=== PATIENT | male | born 1995 | race Caucasian/White ===

== ENCOUNTER 2018-05-12 13:20 | Emergency (ER) | payer OTHER ==
[2018-05-12 13:25] VITALS: RESP 18
[2018-05-12] MEDS ORDERED: SODIUM CHLORIDE 0.9% 1,000 ML IV STA (14:27)
[2018-05-12] MEDS ORDERED: SODIUM CHLORIDE 0.9% 500 ML IV STA (14:27)
[2018-05-12 14:57] LABS: ALT 25 U/L (21-72); AST 24 U/L (17-59); Albumin 4.5 g/dL (3.5-5.0); Alkaline Phosphatase 109 U/L (38-126); Amylase 34 U/L (30-110); Anion Gap 11 mmol/L; Basophils # (A) 0.1 k/uL (0-0.2); Basophils % (A) 1 %; Blood Urea Nitrogen 10 mg/dL (9-20); Calcium 9.6 mg/dL (8.4-10.2); Carbon Dioxide 23 mmol/L (22-30); Chloride 106 mmol/L (98-107); Eosinophils # (A) 0.1 k/uL (0-0.7); Eosinophils % (A) 1 %; Glucose 92 mg/dL (74-99); HCT 47.1 % (39.0-53.0); HGB 15.9 gm/dL (13.0-17.5); Lipase 37 U/L (23-300); Lymphocytes # (A) 0.9 k/uL (1.0-4.8); Lymphocytes % (A) 8 %; MCH 33.4 pg (25.0-35.0); MCHC 33.7 g/dL (31.0-37.0); Mean Platelet Volume 6.3; Monocytes # (A) 1.2 k/uL (0-1.0); Monocytes % (A) 11 %; Neutrophils # (A) 8.5 k/uL (1.3-7.7); Neutrophils % (A) 77 %; Platelet Count 261 k/uL (150-450); Potassium 4.4 mmol/L (3.5-5.1); RBC 4.75 m/uL (4.30-5.90); RDW 13.5 % (11.5-15.5); Sodium 140 mmol/L (137-145); Total Bilirubin 0.5 mg/dL (0.2-1.3); Total Protein 7.2 g/dL (6.3-8.2)
--- NOTE | 2018-05-12 15:10 | XR ---
EXAMINATION TYPE: XR chest 2V DATE OF EXAM: 05/12/2018 COMPARISON: 10/22/2017 HISTORY: Chest pain TECHNIQUE: Frontal and lateral views of the chest are obtained. FINDINGS: There is no focal air space opacity, pleural effusion, or pneumothorax seen. The cardiac silhouette size is within normal limits. The osseous structures are intact. IMPRESSION: No acute cardiopulmonary process.
--- NOTE | 2018-05-12 15:13 | XR ---
EXAMINATION TYPE: XR KUB DATE OF EXAM: 05/12/2018 CLINICAL DATA: 22-year-old male with pain, PHH COMPARISON: None FINDINGS: Lung bases are clear. No evidence for free intraperitoneal air. No dilated small bowel or air-fluid levels. Some scattered gassy small bowel loops are demonstrated. Colonic air extending distally into the rectum. No significant stool burden. No suspicious calcifications identified. IMPRESSION: No evidence of bowel obstruction or free intraperitoneal air.
--- NOTE | 2018-05-12 16:00 | ED ---
Nausea/Vomiting/Diarrhea HPI - General Chief complaint: Nausea/Vomiting/Diarrhea Stated complaint: Diarrhea/shaking Time Seen by Provider: 05/12/18 14:07 Source: patient, RN notes reviewed Mode of arrival: ambulatory Limitations: no limitations - History of Present Illness Initial comments: 22-year-old male presents emergency Department with chief complaint of diarrhea 10 days. Patient states that he has 3 episodes today states occasionally gets abdominal cramping. Patient denies any recent antibiotic use, recent traveling or sick contacts. Denies any nausea vomiting. Denies any prior abdominal surgeries. Patient had no melena hematochezia. Patient denies any dysuria no hematuria. Patient also has complained over the last 3-4 days she's had some URI symptoms including runny nose cough and slight sore throat. Patient states he has not taken any medications for either complaint - Related Data Previous Rx's Medication Instructions Recorded Azithromycin [Zithromax Z-pack] 0 mg PO DIRECTED #1 pack 05/12/18 Allergies Allergy/AdvReac Type Severity Reaction Status Date / Time ciprofloxacin [From Cipro] Allergy Unknown Verified 05/12/18 14:19 clarithromycin [From Biaxin] Allergy Rash/Hives Verified 05/12/18 14:19 Mushroom AdvReac Nausea & Verified 05/12/18 14:19 Vomiting Review of Systems ROS Statement: Those systems with pertinent positive or pertinent negative responses have been documented in the HPI. ROS Other: All systems not noted in ROS Statement are negative. Past Medical History Past Medical History: No Reported History History of Any Multi-Drug Resistant Organisms: None Reported Past Surgical History: Orthopedic Surgery Additional Past Surgical History / Comment(s): Right arm Past Psychological History: Anxiety Smoking Status: Current every day smoker Past Alcohol Use History: Daily Past Drug Use History: Marijuana General Exam Limitations: no limitations General appearance: alert, in no apparent distress Head exam: Present: atraumatic, normocephalic, normal inspection Eye exam: Present: normal appearance, PERRL, EOMI. Absent: scleral icterus, conjunctival injection, periorbital swelling ENT exam: Present: normal exam, normal oropharynx, mucous membranes moist, TM's normal bilaterally, normal external ear exam Neck exam: Present: normal inspection, full ROM. Absent: tenderness, meningismus, lymphadenopathy Respiratory exam: Present: normal lung sounds bilaterally. Absent: respiratory distress, wheezes, rales, rhonchi, stridor Cardiovascular Exam: Present: regular rate, normal rhythm, normal heart sounds. Absent: systolic murmur, diastolic murmur, rubs, gallop, clicks GI/Abdominal exam: Present: soft, normal bowel sounds. Absent: distended, tenderness, guarding, rebound, rigid Neurological exam: Present: alert, oriented X3, CN II-XII intact Skin exam: Present: warm, dry, intact, normal color. Absent: rash Course Vital Signs 05/12/18 05/12/18 13:22 15:53 Temperature 99.1 F Pulse Rate 97 65 Respiratory 18 18 Rate Blood Pressure 149/79 127/65 O2 Sat by Pulse 99 99 Oximetry Medical Decision Making - Medical Decision Making 22-year-old male presents emergency Department with chief complaint of diarrhea and cough URI symptoms. Patient labwork x-rays which unremarkable. Patient will be started on azithromycin for acute bronchitis and underlying ongoing diarrhea. Stool studies will be obtained out patient has not provided sample here - Lab Data Result diagrams: 05/12/18 14:30 05/12/18 14:30 Lab Results 05/12/18 05/12/18 05/12/18 Range/Units 14:30 14:30 15:56 WBC 11.0 H (3.8-10.6) k/uL RBC 4.75 (4.30-5.90) m/uL Hgb 15.9 (13.0-17.5) gm/dL Hct 47.1 (39.0-53.0) % MCV 99.0 (80.0-100.0) fL MCH 33.4 (25.0-35.0) pg MCHC 33.7 (31.0-37.0) g/dL RDW 13.5 (11.5-15.5) % Plt Count 261 (150-450) k/uL Neutrophils % 77 % Lymphocytes % 8 % Monocytes % 11 % Eosinophils % 1 % Basophils % 1 % Neutrophils # 8.5 H (1.3-7.7) k/uL Lymphocytes # 0.9 L (1.0-4.8) k/uL Monocytes # 1.2 H (0-1.0) k/uL Eosinophils # 0.1 (0-0.7) k/uL Basophils # 0.1 (0-0.2) k/uL Sodium 140 (137-145) mmol/L Potassium 4.4 (3.5-5.1) mmol/L Chloride 106 (98-107) mmol/L Carbon Dioxide 23 (22-30) mmol/L Anion Gap 11 mmol/L BUN 10 (9-20) mg/dL Creatinine 0.85 (0.66-1.25) mg/dL Est GFR (CKD-EPI)AfAm >90 (>60 ml/min/1.73 sqM) Est GFR (CKD-EPI)NonAf >90 (>60 ml/min/1.73 sqM) Glucose 92 (74-99) mg/dL Calcium 9.6 (8.4-10.2) mg/dL Total Bilirubin 0.5 (0.2-1.3) mg/dL AST 24 (17-59) U/L ALT 25 (21-72) U/L Alkaline Phosphatase 109 (38-126) U/L Total Protein 7.2 (6.3-8.2) g/dL Albumin 4.5 (3.5-5.0) g/dL Amylase 34 (30-110) U/L Lipase 37 (23-300) U/L Urine Color Light Yellow Urine Appearance Clear (Clear) Urine pH 7.0 (5.0-8.0) Ur Specific [place] 1.007 (1.001-1.035) Urine Protein Negative (Negative) Urine Glucose (UA) Negative (Negative) Urine Ketones Negative (Negative) Urine Blood Negative (Negative) Urine Nitrite Negative (Negative) Urine Bilirubin Negative (Negative) Urine Urobilinogen <2.0 (<2.0) mg/dL Ur Leukocyte Esterase Negative (Negative) Disposition Clinical Impression: Diarrhea, Acute bronchitis Disposition: HOME SELF-CARE Condition: Stable Instructions: Acute Diarrhea (ED) Additional Instructions: Please return to the Emergency Department if symptoms worsen or any other concerns. Prescriptions: Azithromycin [Zithromax Z-pack] 0 mg PO DIRECTED #1 pack Is patient prescribed a controlled substance at d/c from ED?: No Referrals: None,Stated [Primary Care Provider] - 1-2 days Time of Disposition: 16:42
[2018-05-12 16:07] LABS: Appearance,Urine Clear (Clear); Bilirubin,Urine Negative (Negative); Blood,Urine Negative (Negative); Color,Urine Light Yellow; Glucose,Urine (UA) Negative (Negative); Ketones,Urine Negative (Negative); Leukocyte Esterase,Urine Negative (Negative); Nitrite,Urine Negative (Negative); Protein,Urine Negative (Negative); Specific Gravity,Urine 1.007 (1.001-1.035); Urobilinogen,Urine <2.0 mg/dL (<2.0)
[2018-05-12 16:58] VITALS: BP 117/66; PULSE 70; TEMP 99.2
== END 2018-05-12 16:58 | disposition home or self-care (01) ==
LOC: EC 13:20
DX: J20.9 Acute bronchitis, unspecified (principal); R19.7 Diarrhea, unspecified; R10.9 Unspecified abdominal pain; F17.200 Nicotine dependence, unspecified, uncomplicated; Z88.1 Allergy status to other antibiotic agents; Z91.018 Allergy to other foods
CPT/HCPCS: 36415; 71046; 74018; 80053; 81003; 82150; 83690; 85025; 96360; 96361; 99284

== ENCOUNTER 2018-06-01 17:58 | Emergency (ER) | payer OTHER ==
[2018-06-01 18:08] VITALS: BP 122/71; PULSE 89; RESP 18; TEMP 98.3
[2018-06-01] MEDS ORDERED: PROPARACAINE 0.5% OPHTH DROPS 15 ML BTL LEFT EYE STA (18:12)
[2018-06-01] MEDS ORDERED: PROPARACAINE 0.5% OPHTH DROPS 15 ML BTL ONE (18:13)
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
== END 2018-06-01 18:51 | disposition home or self-care (01) ==
LOC: EC 17:58
DX: S05.02XA Injury of conjunctiva and corneal abrasion without foreign body, left eye, initial encounter (principal); F17.200 Nicotine dependence, unspecified, uncomplicated; Z88.1 Allergy status to other antibiotic agents; Z91.018 Allergy to other foods; W22.8XXA Striking against or struck by other objects, initial encounter
CPT/HCPCS: 99283

== ENCOUNTER 2018-09-25 16:22 | Emergency (ER) | payer OTHER ==
--- NOTE | 2018-09-25 17:30 | ED ---
General Adult HPI <Jeremias Iyer - Last Filed: 09/25/18 20:00> - General Source: patient, police, RN notes reviewed Mode of arrival: ambulatory Limitations: no limitations <Isai Hagan - Last Filed: 09/25/18 20:14> - General Chief complaint: Extremity Injury, Upper Stated complaint: shoulder injury-[facility] Time Seen by Provider: 09/25/18 17:14 - History of Present Illness Initial comments: Patient 22-year-old male presenting to the emergency room today with a chief complaint of injury to the right shoulder. He states he was throwing a piece of carpet over into the dumpster felt the shoulder pop. He states he has dislocated this shoulder before. He states is usually able to relocate it on his own. Patient states that increased pain and feels that it is out of place. He denies any other complaints or symptoms. Patient denies any recent fever, chills, shortness of breath, chest pain, back pain, abdominal pain, nausea or vomiting, headaches or visual changes, or any other complaints. (Isai Hagan) - Related Data Previous Rx's Medication Instructions Recorded Azithromycin [Zithromax Z-pack] 0 mg PO DIRECTED #1 pack 05/12/18 Erythromycin Ophth Oint [Romycin 1 applic LEFT EYE QID 5 Days #1 06/01/18 Ophth Oint] tube Allergies Allergy/AdvReac Type Severity Reaction Status Date / Time ciprofloxacin [From Cipro] Allergy Unknown Verified 06/01/18 18:08 Mushroom AdvReac Nausea & Verified 06/01/18 18:08 Vomiting Review of Systems ROS Other: All systems not noted in ROS Statement are negative. <Jeremias Iyer - Last Filed: 09/25/18 20:00> ROS Other: All systems not noted in ROS Statement are negative. <Isai Hagan - Last Filed: 09/25/18 20:14> ROS Statement: Those systems with pertinent positive or pertinent negative responses have been documented in the HPI. Past Medical History Past Medical History: No Reported History History of Any Multi-Drug Resistant Organisms: None Reported Past Surgical History: Orthopedic Surgery Additional Past Surgical History / Comment(s): Right arm Past Psychological History: Anxiety Smoking Status: Current every day smoker Past Alcohol Use History: Daily Past Drug Use History: Marijuana <Isai Hagan - Last Filed: 09/25/18 20:14> General Exam General appearance: alert, in no apparent distress Head exam: Present: atraumatic, normocephalic, normal inspection Eye exam: Present: normal appearance, PERRL, EOMI. Absent: scleral icterus, conjunctival injection, periorbital swelling ENT exam: Present: normal exam, mucous membranes moist Neck exam: Present: normal inspection. Absent: tenderness, meningismus, lymphadenopathy Respiratory exam: Present: normal lung sounds bilaterally. Absent: respiratory distress, wheezes, rales, rhonchi, stridor Cardiovascular Exam: Present: regular rate, normal rhythm, normal heart sounds. Absent: systolic murmur, diastolic murmur, rubs, gallop, clicks GI/Abdominal exam: Present: soft, normal bowel sounds. Absent: distended, tenderness, guarding, rebound, rigid Extremities exam: Present: normal inspection, full ROM, normal capillary refill. Absent: tenderness, pedal edema, joint swelling, calf tenderness Back exam: Present: normal inspection Neurological exam: Present: alert, oriented X3, CN II-XII intact Psychiatric exam: Present: normal affect, normal mood Skin exam: Present: warm, dry, intact, normal color. Absent: rash <Jeremias Iyer - Last Filed: 09/25/18 20:00> Limitations: no limitations <Isai Hagan - Last Filed: 09/25/18 20:14> - General Exam Comments Initial Comments: General: The patient is awake and alert, in no distress, and does not appear acutely ill. Eye: Pupils are equal, round and reactive to light, extra-ocular movements are intact. No nystagmus. There is normal conjunctiva bilaterally. No signs of icterus. Ears, nose, mouth and throat: There are moist mucous membranes and no oral lesions. Musculoskeletal: Patient does have abnormal appearance the right shoulder. He is tender over the anterior posterior aspect. Radial pulses 2+. Sensations intact. No bony tenderness down to the elbow or wrist. Neurological: A&O x 3. CN II-XII intact, There are no obvious motor or sensory deficits. Coordination appears grossly intact. Speech is normal. Skin: Skin is warm and dry and no rashes or lesions are noted. Psychiatric: Cooperative, appropriate mood & affect, normal judgment. (Isai Hagan) Vital Signs 09/25/18 09/25/18 09/25/18 17:18 18:47 19:18 Temperature 97.5 F L Pulse Rate 91 76 81 Respiratory 18 20 18 Rate Blood Pressure 137/65 141/75 136/87 O2 Sat by Pulse 98 97 98 Oximetry 09/25/18 09/25/18 19:37 19:41 Temperature Pulse Rate 85 81 Respiratory 18 18 Rate Blood Pressure 162/68 144/74 O2 Sat by Pulse 98 98 Oximetry Procedures - Orthopedic Joint Reduction Joint #1 Consent Obtained: verbal consent Time Out Performed: Yes Side: right Joint Reduction Location: shoulder Analgesia: procedural sedation Shoulder Technique Used (if applicable): traction/counter-traction Technique Used: traction/counter-traction Post-Reduction Neuro Exam: intact Post-Reduction Vascular Exam: intact Post Reduction X-Ray Obtained: Yes Post Reduction X-Ray Results: reduced Splint Applied: Yes Patient Tolerated Procedure: well - Procedural Sedation Indications: fracture/dislocation reduction ASA Class: I Mallampati Airway Score: 1 Preparation: children librarian applied, supplemental O2 applied Ketamine: IV IV Propofol Dose (mgs): 250 Complications: none Interventions: oxygen applied Patient Tolerated Procedure: well <Jeremias Iyer - Last Filed: 09/25/18 20:00> Medical Decision Making <Jeremias Iyer - Last Filed: 09/25/18 20:00> <Isai Hagan - Last Filed: 09/25/18 20:14> - Medical Decision Making Conscious sedation was performed with attending physician Dr. Iyer. Patient' s right shoulder was reduced. Patient's x-ray shows good reduction. Patient placed in an arm sling. He's been up walking around doing well at this time. Patient is advised follow-up with orthopedics. (Isai Hagan) Disposition Is patient prescribed a controlled substance at d/c from ED?: No <Jeremias Iyer - Last Filed: 09/25/18 20:00> Is patient prescribed a controlled substance at d/c from ED?: No Time of Disposition: 20:13 <Isai Hagan - Last Filed: 09/25/18 20:14> Clinical Impression: Strain of shoulder, Shoulder dislocation Disposition: HOME SELF-CARE Instructions: Shoulder Dislocation (ED) Additional Instructions: Please follow-up with orthopedics over the next 2-5 days. Please use shoulder sling when up and moving around. Please return to emergency room for any other concerns. Referrals: None,Stated [Primary Care Provider] - 1-2 days Ray Chan MD [Medical Doctor] - 1-2 days
--- NOTE | 2018-09-25 17:42 | XR ---
EXAMINATION TYPE: XR shoulder complete RT DATE OF EXAM: 09/25/2018 COMPARISON: NONE HISTORY: Shoulder injury TECHNIQUE: 3 views FINDINGS: There is anterior inferior dislocation of the humeral head. There is no fracture seen. IMPRESSION: Anterior shoulder dislocation.
[2018-09-25] MEDS ORDERED: PROPOFOL 10 MG/ML 20 ML VIAL IV STA (17:49)
[2018-09-25 19:19] VITALS: RESP 18
[2018-09-25] MEDS ORDERED: PROPOFOL 10 MG/ML 20 ML VIAL IV ONE (19:55)
--- NOTE | 2018-09-25 20:01 | XR ---
EXAMINATION TYPE: XR shoulder limited RT DATE OF EXAM: 09/25/2018 COMPARISON: Today HISTORY: Post reduction TECHNIQUE: Single view FINDINGS: There is anatomic reduction of the shoulder joint. No fracture seen. IMPRESSION: Anatomic reduction.
[2018-09-25 21:30] VITALS: BP 155/71; PULSE 65; TEMP 98.9
--- NOTE | 2018-09-26 07:07 | CDI ---
Documentation Clarification OP Dear Jeremias Iyer, DO Please do addendum to ED report for shoulder dislocation reduction procedure end time. Thank you, Margo Lea Ladder Operator If you have any questions, please contact Public Affairs Specialist at [phone] [facility]
== END 2018-09-25 20:51 | disposition home or self-care (01) ==
LOC: EC 16:22
DX: S43.004A Unspecified dislocation of right shoulder joint, initial encounter (principal); F17.200 Nicotine dependence, unspecified, uncomplicated; Z98.890 Other specified postprocedural states; Z88.1 Allergy status to other antibiotic agents; Z91.018 Allergy to other foods; X50.9XXA Other and unspecified overexertion or strenuous movements or postures, initial encounter; Y92.69 Other specified industrial and construction area as the place of occurrence of the external cause; Y93.89 Activity, other specified; Y99.0 Civilian activity done for income or pay
CPT/HCPCS: 73020; 73030; 99283; 23650; 99152; 99153; J2704

== ENCOUNTER 2018-09-30 15:15 | Emergency (ER) | payer OTHER ==
[2018-09-30 15:24] VITALS: BP 140/75; PULSE 82; RESP 18; TEMP 98.7
--- NOTE | 2018-09-30 16:03 | XR ---
Right shoulder HISTORY: Dislocation and reduction, trauma and pain 3 views of the right shoulder Bone mineralization, joint spaces and alignment are maintained IMPRESSION: No acute fracture or dislocation. Consider shoulder MRI.
--- NOTE | 2018-09-30 16:20 | ED ---
Upper Extremity HPI - General Chief Complaint: Extremity Injury, Upper Stated Complaint: [facility] revisit rt shoulder pain Time Seen by Provider: 09/30/18 15:26 Source: patient, RN notes reviewed Mode of arrival: ambulatory Limitations: no limitations - History of Present Illness Initial Comments: 22-year-old male presents emergency Department with chief complaint right shoulder pain. Patient states that he is here yesterday for shoulder dislocation. Patient states she rolled over on her put his arm above his head last night and felt it pop out again. Patient states that he but it back in by himself and called his follow-up doctor and they told him come emergency from for evaluation. He states that it does feel improved at the time and isn't. Patient offers no other complaints. - Related Data Home Medications Medication Instructions Recorded Confirmed Cyclobenzaprine [Flexeril] 10 mg PO HS PRN 09/30/18 09/30/18 Naproxen 500 mg PO BID PRN 09/30/18 09/30/18 Allergies Allergy/AdvReac Type Severity Reaction Status Date / Time ciprofloxacin [From Cipro] Allergy Unknown Verified 09/30/18 15:35 Mushroom AdvReac Nausea & Verified 09/30/18 15:35 Vomiting Review of Systems ROS Statement: Those systems with pertinent positive or pertinent negative responses have been documented in the HPI. ROS Other: All systems not noted in ROS Statement are negative. Past Medical History Past Medical History: No Reported History History of Any Multi-Drug Resistant Organisms: None Reported Past Surgical History: Orthopedic Surgery Additional Past Surgical History / Comment(s): Right arm Past Psychological History: Anxiety Smoking Status: Current every day smoker Past Alcohol Use History: Daily Past Drug Use History: Marijuana General Exam Limitations: no limitations General appearance: alert, in no apparent distress Head exam: Present: atraumatic, normocephalic, normal inspection Respiratory exam: Present: normal lung sounds bilaterally. Absent: respiratory distress, wheezes, rales, rhonchi, stridor Cardiovascular Exam: Present: regular rate, normal rhythm, normal heart sounds. Absent: systolic murmur, diastolic murmur, rubs, gallop, clicks Extremities exam: Present: other (Right shoulder limited range of motion neurovascular intact no obvious deformity no sulcus, mild tenderness with palpation) Skin exam: Present: warm, dry, intact, normal color. Absent: rash Course Vital Signs 09/30/18 15:18 Temperature 98.7 F Pulse Rate 82 Respiratory 18 Rate Blood Pressure 140/75 O2 Sat by Pulse 100 Oximetry Medical Decision Making - Medical Decision Making 22-year-old male present emergency from for right shoulder pain. Patient had recurrent shoulder dislocation. There is no acute abnormality on x-ray. Patient will follow-up return parameters were discussed. Disposition Clinical Impression: Strain of shoulder, Recurrent shoulder dislocation Disposition: HOME SELF-CARE Condition: Stable Instructions: Shoulder Dislocation (ED) Additional Instructions: Please return to the Emergency Department if symptoms worsen or any other concerns. Is patient prescribed a controlled substance at d/c from ED?: No Referrals: None,Stated [Primary Care Provider] - 1-2 days Time of Disposition: 16:22
== END 2018-09-30 16:38 | disposition home or self-care (01) ==
LOC: EC 15:15
DX: M24.411 Recurrent dislocation, right shoulder (principal); F17.200 Nicotine dependence, unspecified, uncomplicated; Z88.1 Allergy status to other antibiotic agents; Z91.018 Allergy to other foods
CPT/HCPCS: 99283

== ENCOUNTER → 2020-06-28 | Outpatient (CLI) | payer BC, OTHER | END | disposition home or self-care (01) | LOC: LABWHC1 12:37 | PROVIDERS: ATTEND Emergency Medicine | DX: Z20.828 Contact with and (suspected) exposure to other viral communicable diseases (principal) | CPT/HCPCS: U0003; C9803 ==

== ENCOUNTER 2021-10-23 14:23 | Emergency (ER) | payer OTHER ==
[2021-10-23 15:03] VITALS: TEMP 98.9
[2021-10-23] MEDS ORDERED: SODIUM CHLORIDE 0.9% 1,000 ML IV ONE (16:19)
--- NOTE | 2021-10-23 16:23 | ED ---
General Adult HPI - General Chief complaint: Neuro Symptoms/Deficit Stated complaint: Possible Stroke Time Seen by Provider: 10/23/21 15:00 Source: patient, RN notes reviewed, old records reviewed Mode of arrival: ambulatory Limitations: no limitations - History of Present Illness Initial comments: This is a 25-year-old male who presents emergency department with past medical history significant for drinking and possibly a TIA years ago. Patient states yesterday at 7:30 he started feeling fuzzy in his head and he went to [facility] they did a CAT scan and some lab work however the patient left AMA prior to them telling him his results so he does not know what happened. Patient states he continues to feel fuzzy today and he does continue to drink today and states he has no weakness or numbness he denies blurred vision he denies lightheadedness or dizziness. Patient denies chest pain palpitations difficulty breathing shortness of breath. Patient denies any recent fever chills or cough. Patient denies abdominal pain patient denies nausea vomiting or diarrhea. Patient's only complaint is that he feels fuzzy in his head and he can't remember leaving [facility] yesterday. - Related Data Home Medications Medication Instructions Recorded Confirmed Escitalopram [Lexapro] 20 mg PO HS 10/23/21 10/23/21 buPROPion HCL [Wellbutrin SR] 150 mg PO HS 10/23/21 10/23/21 Allergies Allergy/AdvReac Type Severity Reaction Status Date / Time ciprofloxacin [From Cipro] Allergy Unknown Verified 10/23/21 17:29 clarithromycin [From Biaxin] Allergy Rash/Hives Verified 10/23/21 17:29 Review of Systems ROS Statement: Those systems with pertinent positive or pertinent negative responses have been documented in the HPI. ROS Other: All systems not noted in ROS Statement are negative. Past Medical History Past Medical History: No Reported History History of Any Multi-Drug Resistant Organisms: None Reported Past Surgical History: Orthopedic Surgery Additional Past Surgical History / Comment(s): Right arm Past Psychological History: Anxiety, Depression Smoking Status: Current every day smoker Past Alcohol Use History: Abuse, Daily, Heavy Past Drug Use History: Marijuana General Exam - General Exam Comments Initial Comments: GENERAL: Patient is well-developed and well-nourished. Patient is nontoxic and well- hydrated and is in no acute distress. ENT: Neck is soft and supple. No significant lymphadenopathy is noted. Oropharynx is clear. Moist mucous membranes. Neck has full range of motion without eliciting any pain. EYES: The sclera were anicteric and conjunctiva were pink and moist. Extraocular movements were intact and pupils were equal round and reactive to light. Eyelids were unremarkable. PULMONARY: Unlabored respirations. Good breath sounds bilaterally. No audible rales rhonchi or wheezing was noted. CARDIOVASCULAR: There is a regular rate and rhythm without any murmurs gallops or rubs. ABDOMEN: Soft and nontender with normal bowel sounds. SKIN: Skin is clear with no lesions or rashes and otherwise unremarkable. NEUROLOGIC: Patient is alert and oriented x3. Cranial nerves II through XII are grossly intact. Motor and sensory are also intact. Normal speech, volume and content. Symmetrical smile. MUSCULOSKELETAL: Normal extremities with adequate strength and full range of motion. No lower extremity swelling or edema. No calf tenderness. LYMPHATICS: No significant lymphadenopathy is noted PSYCHIATRIC: Normal psychiatric evaluation. Limitations: no limitations Course Vital Signs 10/23/21 10/23/21 14:58 17:19 Temperature 98.9 F Pulse Rate 72 77 Respiratory 19 18 Rate Blood Pressure 130/89 136/83 O2 Sat by Pulse 98 97 Oximetry Medical Decision Making - Medical Decision Making EKG shows normal sinus rhythm at 72 bpm HI interval is 184 QRS is 90 QT interval 392 QTC is 429. Patient's EKG shows no ST segment elevation or depression. - Lab Data Result diagrams: 10/23/21 16:43 10/23/21 16:43 Lab Results 10/23/21 10/23/21 10/23/21 Range/Units 16:43 16:43 16:43 WBC 6.1 (3.8-10.6) k/uL RBC 4.31 (4.30-5.90) m/uL Hgb 15.4 (13.0-17.5) gm/dL Hct 45.1 (39.0-53.0) % MCV 104.6 H (80.0-100.0) fL MCH 35.7 H (25.0-35.0) pg MCHC 34.1 (31.0-37.0) g/dL RDW 12.6 (11.5-15.5) % Plt Count 284 (150-450) k/uL MPV 7.1 Neutrophils % 62 % Lymphocytes % 22 % Monocytes % 7 % Eosinophils % 5 % Basophils % 1 % Neutrophils # 3.8 (1.3-7.7) k/uL Lymphocytes # 1.4 (1.0-4.8) k/uL Monocytes # 0.4 (0-1.0) k/uL Eosinophils # 0.3 (0-0.7) k/uL Basophils # 0.0 (0-0.2) k/uL Macrocytosis Slight Sodium 142 (137-145) mmol/L Potassium 3.8 (3.5-5.1) mmol/L Chloride 106 (98-107) mmol/L Carbon Dioxide 21 L (22-30) mmol/L Anion Gap 15 mmol/L BUN 8 L (9-20) mg/dL Creatinine 0.78 (0.66-1.25) mg/dL Est GFR (CKD-EPI)AfAm >90 (>60 ml/min/1.73 sqM) Est GFR (CKD-EPI)NonAf >90 (>60 ml/min/1.73 sqM) Glucose 128 H (74-99) mg/dL Calcium 9.5 (8.4-10.2) mg/dL Magnesium 2.1 (1.6-2.3) mg/dL Total Bilirubin 0.3 (0.2-1.3) mg/dL AST 127 H (17-59) U/L ALT 99 H (4-49) U/L Alkaline Phosphatase 84 (38-126) U/L Ammonia (<30) umol/L Total Protein 7.8 (6.3-8.2) g/dL Albumin 4.8 (3.5-5.0) g/dL Urine Opiates Screen Not Detected (NotDetected) Ur Oxycodone Screen Not Detected (NotDetected) Urine Methadone Screen Not Detected (NotDetected) Ur Propoxyphene Screen Not Detected (NotDetected) Ur Barbiturates Screen Not Detected (NotDetected) U Tricyclic Antidepress Not Detected (NotDetected) Ur Phencyclidine Scrn Not Detected (NotDetected) Ur Amphetamines Screen Not Detected (NotDetected) U Methamphetamines Scrn Not Detected (NotDetected) U Benzodiazepines Scrn Not Detected (NotDetected) Urine Cocaine Screen Not Detected (NotDetected) U Marijuana (THC) Screen Not Detected (NotDetected) Serum Alcohol 175 mg/dL 10/23/21 Range/Units 16:43 WBC (3.8-10.6) k/uL RBC (4.30-5.90) m/uL Hgb (13.0-17.5) gm/dL Hct (39.0-53.0) % MCV (80.0-100.0) fL MCH (25.0-35.0) pg MCHC (31.0-37.0) g/dL RDW (11.5-15.5) % Plt Count (150-450) k/uL MPV Neutrophils % % Lymphocytes % % Monocytes % % Eosinophils % % Basophils % % Neutrophils # (1.3-7.7) k/uL Lymphocytes # (1.0-4.8) k/uL Monocytes # (0-1.0) k/uL Eosinophils # (0-0.7) k/uL Basophils # (0-0.2) k/uL Macrocytosis Sodium (137-145) mmol/L Potassium (3.5-5.1) mmol/L Chloride (98-107) mmol/L Carbon Dioxide (22-30) mmol/L Anion Gap mmol/L BUN (9-20) mg/dL Creatinine (0.66-1.25) mg/dL Est GFR (CKD-EPI)AfAm (>60 ml/min/1.73 sqM) Est GFR (CKD-EPI)NonAf (>60 ml/min/1.73 sqM) Glucose (74-99) mg/dL Calcium (8.4-10.2) mg/dL Magnesium (1.6-2.3) mg/dL Total Bilirubin (0.2-1.3) mg/dL AST (17-59) U/L ALT (4-49) U/L Alkaline Phosphatase (38-126) U/L Ammonia <9 (<30) umol/L Total Protein (6.3-8.2) g/dL Albumin (3.5-5.0) g/dL Urine Opiates Screen (NotDetected) Ur Oxycodone Screen (NotDetected) Urine Methadone Screen (NotDetected) Ur Propoxyphene Screen (NotDetected) Ur Barbiturates Screen (NotDetected) U Tricyclic Antidepress (NotDetected) Ur Phencyclidine Scrn (NotDetected) Ur Amphetamines Screen (NotDetected) U Methamphetamines Scrn (NotDetected) U Benzodiazepines Scrn (NotDetected) Urine Cocaine Screen (NotDetected) U Marijuana (THC) Screen (NotDetected) Serum Alcohol mg/dL Disposition Clinical Impression: Alcohol intoxication, Alcohol abuse Disposition: HOME SELF-CARE Condition: Good Instructions (If sedation given, give patient instructions): Abuse of Alcohol (ED) Is patient prescribed a controlled substance at d/c from ED?: No Referrals: Caitie Decker MD [Primary Care Provider] - 1-2 days Time of Disposition: 17:37
[2021-10-23 17:01] LABS: Basophils % (A) 1 %; Eosinophils # (A) 0.3 k/uL (0-0.7); Eosinophils % (A) 5 %; HCT 45.1 % (39.0-53.0); HGB 15.4 gm/dL (13.0-17.5); Lymphocytes # (A) 1.4 k/uL (1.0-4.8); Lymphocytes % (A) 22 %; MCH 35.7 pg (25.0-35.0); MCHC 34.1 g/dL (31.0-37.0); MCV 104.6 fL (80.0-100.0); Macrocytosis Slight; Mean Platelet Volume 7.1; Monocytes # (A) 0.4 k/uL (0-1.0); Monocytes % (A) 7 %; Neutrophils # (A) 3.8 k/uL (1.3-7.7); Neutrophils % (A) 62 %; Platelet Count 284 k/uL (150-450); RBC 4.31 m/uL (4.30-5.90); RDW 12.6 % (11.5-15.5); WBC 6.1 k/uL (3.8-10.6)
[2021-10-23 17:11] LABS: ALT 99 U/L (4-49); AST 127 U/L (17-59); African American GFR (CKD) >90 (>60 ml/min/1.73 sqM); Albumin 4.8 g/dL (3.5-5.0); Alkaline Phosphatase 84 U/L (38-126); Anion Gap 15 mmol/L; Blood Urea Nitrogen 8 mg/dL (9-20); Calcium 9.5 mg/dL (8.4-10.2); Carbon Dioxide 21 mmol/L (22-30); Chloride 106 mmol/L (98-107); Glucose 128 mg/dL (74-99); Magnesium 2.1 mg/dL (1.6-2.3); Non-African American GFR(CKD) >90 (>60 ml/min/1.73 sqM); Potassium 3.8 mmol/L (3.5-5.1); Sodium 142 mmol/L (137-145); Total Bilirubin 0.3 mg/dL (0.2-1.3); Total Protein 7.8 g/dL (6.3-8.2)
[2021-10-23 17:14] LABS: Alcohol 175 mg/dL
[2021-10-23 17:28] LABS: Amphetamine Screen,Urine Not Detected (NotDetected); Barbiturate Screen,Urine Not Detected (NotDetected); Benzodiazepines Screen,Urine Not Detected (NotDetected); Cocaine Screen,Urine Not Detected (NotDetected); Methadone Screen, Urine Not Detected (NotDetected); Opiate Screen,Urine Not Detected (NotDetected); Oxycodone Screen, Urine Not Detected (NotDetected); Phencyclidine Screen,Urine Not Detected (NotDetected); Tricyclic Antidepressant,Urine Not Detected (NotDetected); Urn Cannabinoid Scrn Not Detected (NotDetected)
[2021-10-23 17:35] VITALS: BP 136/83; PULSE 77; RESP 18
== END 2021-10-23 18:00 | disposition home or self-care (01) ==
LOC: EC 14:23
DX: F10.129 Alcohol abuse with intoxication, unspecified (principal); F41.9 Anxiety disorder, unspecified; F32.A Depression, unspecified; F17.200 Nicotine dependence, unspecified, uncomplicated; F12.90 Cannabis use, unspecified, uncomplicated; Z88.1 Allergy status to other antibiotic agents; Y90.6 Blood alcohol level of 120-199 mg/100 ml
CPT/HCPCS: 36415; 80053; 80306; 80320; 82140; 83735; 85025; 93005; 96360; 99284

== ENCOUNTER → 2023-05-15 | Outpatient (CLI) | payer OTHER ==
--- NOTE | 2023-05-15 23:54 | EEG ---
ELECTROENCEPHALOGRAM REPORT CLINICAL HISTORY: This is a 27-year-old gentleman with reported episode of agitation, tremor with loss of consciousness at times. The video EEG is obtained to evaluate for seizure and epileptiform discharges. RELEVANT MEDICATIONS: Effexor that is reported on the EEG report. EEG TYPE: A routine 21-channel EEG performed with video using the 10/20 electrode placement system. DESCRIPTION OF PROCEDURE: Wakefulness is only obtained. During the awake state, the posterior-dominant rhythm consists of low to moderate voltage of 10 hertz activity that is well modulated, well sustained. There is no physiological sleep architecture seen. There is no focal slowing. Interictal and ictal: None. ACTIVATION PROCEDURE: Photic stimulation did not evoke a posterior driving response. There is no abnormality during the photic stimulation. Hyperventilation is not performed. CLINICAL INTERPRETATION: This is a normal routine EEG. There is no focal slowing, epileptiform discharge or seizure on the EEG. A normal routine EEG. Does not rule out underlying epilepsy. Clinical correlation is recommended. [id number] / IJN: [id number] /
--- NOTE | 2023-05-16 13:27 | MR ---
EXAMINATION TYPE: MR brain wo con DATE OF EXAM: 05/15/2023 COMPARISON: None HISTORY: Seizures, memory loss, stiffness/shakiness, ETOH abuse. CONTRAST: Performed utilizing 0 mL intravenous Gadavist gadolinium contrast. TECHNIQUE: Multiplanar, multiecho imaging on a 3.0 Beverly magnet is performed through the brain. Stud y is performed within 24 hours of arrival to the hospital. The craniovertebral junction is normal. The pituitary is normal. Diffusion-weighted imaging is performed. No abnormal hyperintensity is present to suggest an acute i ntracranial infarct or acute ischemic change. Couple of punctate subcortical white matter changes are in the centrum semiovale vertex. This is not out of proportion for patient age. Ventricles and sulci are appropriate for the patient age. Temporal lobes appear symmetrical. No focal cerebellar atrophy is evident. There is mucosal thickening and retention cyst in the right maxillary sinus. Small amount of mucosal thickening medial and posterior left anterior right ethmoid air cells and remaining paranasal sinuses and mastoid air cells are near. There IMPRESSIONS: 1. Couple of nonspecific punctate subcortical white matter changes at the centrum semiovale vertex bi laterally. 2. No suspicious acute changes
== END ==
LOC: NEUROMAIN 08:15
PROVIDERS: ATTEND Family Medicine
DX: R56.9 Unspecified convulsions (principal); R25.1 Tremor, unspecified; M25.60 Stiffness of unspecified joint, not elsewhere classified; F10.20 Alcohol dependence, uncomplicated; R41.3 Other amnesia; H53.8 Other visual disturbances; F17.200 Nicotine dependence, unspecified, uncomplicated; Z88.8 Allergy status to other drugs, medicaments and biological substances
CPT/HCPCS: 70551; 95816

== ENCOUNTER 2023-12-06 15:09 | Emergency (ER) | payer OTHER ==
[2023-12-06 15:37] VITALS: PULSE 86; TEMP 98.2
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
[2023-12-06] MEDS: ACET/COD 300 MG/30 MG STARTER PACK 6 TAB BTL PO STA (16:21)
[2023-12-06] MEDS: dexAMETHasone 2 MG TAB PO STA (16:21)
[2023-12-06] MEDS: Acetaminophen-Codeine 300-30mg TAB PO STA (16:21)
[2023-12-06] MEDS: IBUPROFEN 600 MG STARTER PACK 4 TAB BTL PO STA (16:22)
[2023-12-06] MEDS: KETOROLAC 15 MG/ML 1 ML VIAL IM STA (16:23)
[2023-12-06 16:34] VITALS: BP 112/64; RESP 18
== END 2023-12-06 16:27 | disposition home or self-care (01) ==
LOC: EC 15:09
DX: S39.012A Strain of muscle, fascia and tendon of lower back, initial encounter (principal); M54.16 Radiculopathy, lumbar region; F41.9 Anxiety disorder, unspecified; F32.A Depression, unspecified; F17.200 Nicotine dependence, unspecified, uncomplicated; Z79.899 Other long term (current) drug therapy; Z88.1 Allergy status to other antibiotic agents; Z88.8 Allergy status to other drugs, medicaments and biological substances; W19.XXXA Unspecified fall, initial encounter
CPT/HCPCS: 99284; 96372; J8540; J1885